=== PATIENT | male | born 1975 | race Caucasian/White ===

== ENCOUNTER 2019-10-11 03:44 | Observation (INO) ==
[2019-10-11] MEDS ORDERED: LORazepam 1 MG/2 ML VIAL IV STA (04:05)
[2019-10-11 04:14] LABS: Basophils # (auto) 0.03 K/uL (0-0.2); Basophils % (auto) 0.3 %; Eosinophils # (auto) 0.24 K/uL (0-0.5); Eosinophils % (auto) 2.4 %; Hematocrit (blood only) 46.9 % (42-52); Hemoglobin 16.3 g/dL (14.0-18.0); Immature Granulocytes # (auto) 0.04 K/uL (0.00-0.02); Immature Granulocytes % (auto) 0.4 %; Lymphocytes # (auto) 4.11 K/uL (1.2-3.4); Lymphocytes % (auto) 41.3 %; Mean Corpuscular Hemoglobin 31.2 pg (25-34); Mean Corpuscular Hgb Conc 34.8 g/dL (32-36); Mean Corpuscular Volume 89.7 fL (80-100); Mean Platelet Volume 9.9 fL (7.4-10.4); Monocytes # (auto) 0.74 K/uL (0.11-0.59); Monocytes % (auto) 7.4 %; Neutrophils # (auto) 4.79 K/uL (1.4-6.5); Neutrophils % (auto) 48.2 %; Platelet Count 237 K/uL (130-400); RDW Coefficient of Variation 12.7 % (11.5-14.5); RDW Standard Deviation 41.1 fL (36.4-46.3); Red Blood Count 5.23 M/uL (4.7-6.1); White Blood Count 9.95 K/uL (4.8-10.8)
--- NOTE | 2019-10-11 04:28 | Emergency Department Note ---
History of Present Illness General Chief complaint: Chest Pain Stated complaint: CHEST TIGHTNESS,NUMBNESS LFT ARM,JAW FEELS WEIRD History of Present Illness This 44-year-old presents to the ER complaining of chest pain, jaw pain and left arm pain Location: Chest jaw and left arm Quality: Tingly Severity: Moderate Duration: Past hour Timing: Symptoms started an hour ago Context: Patient was concerned and came in Modifying factors: better with nothing; worse with nothing Patient states he stopped taking his metformin as he developed diarrhea and it was interfering with hunting season. No prior heart disease. He does chew tobacco. He states his blood pressure normally is normal but has not seen a doctor in 2 years. Patient did get sweaty with the symptoms. Patient denies dyspnea, abdominal pain, fever, chills, flulike illness. He states he is a weird feeling in his chest jaw and neck. Home Medications Home Medications Medication Instructions Recorded Confirmed Type No Known Home Medications 10/11/19 10/11/19 History Allergies Allergy/AdvReac Type Severity Reaction Status Date / Time No Known Allergies Allergy Verified 10/11/19 04:38 Past Med/Surg History Medical History Diabetes Surgical History No pertinent past surgical history Social History Preferred Language: Com[place]an Feels Safe at Home: Yes Smoking Status: Never smoker Review of Systems A total of 10 systems reviewed and were otherwise negative Physical Exam Vital Signs Vital Signs - 24 hr 10/11/19 03:48 10/11/19 04:15 10/11/19 04:52 Temperature 36.8 C Temperature Source Oral Pulse Rate 72 71 Pulse Rate [Finger] 67 Pulse Rhythm Regular Pulse Rhythm [Finger] Regular Pulse Strength [Finger] Normal Respiratory Rate 22 18 18 Respiratory Effort / Characteristics Non-Labored Spontaneous Respiratory Depth Normal Respiratory Pattern Regular Blood Pressure 176/105 H Blood Pressure [Right Arm] 145/96 H Blood Pressure Mean 128 Blood Pressure Mean [Right Arm] 112 Blood Pressure Position [Right Arm] Lying Pulse Oximetry 96 96 96 Oxygen Delivery Method Room Air Room Air Room Air Sepsis Recent Fever Within 48 Hours No Sepsis New/Unexplained Change in Mental Status No Sepsis Action Taken by Nursing No Action Required VITALS: Vitals are noted on the nurse's note and reviewed by myself. Vital signs hypertensive GENERAL: Pleasant anxious appearing male, in no acute distress, nondiaphoretic, well-developed well-nourished. SKIN: Capillary reflex less than 2 seconds. HEENT: Normocephalic. PERRLA. EOMI. Nares patent. Mucous membranes moist. Neck is supple without nuchal rigidity. HEART: Regular rate and rhythm; chest nontender to palpation LUNGS: Clear to auscultation bilaterally without wheezes, rales or rhonchi. No retractions or accessory muscle use. ABDOMEN: Positive bowel sounds x 4. Normal tympanic percussion. Soft, nontender, without masses or organomegaly. Hdez sign negative. No guarding or rebound tenderness. MUSCULOSKELETAL: No gross musculoskeletal defects. NEURO: Patient was alert and oriented to person place and time. Normal sensation to light and sharp touch. No focal neurological deficits. Course Administered Medications Sodium Chloride (Nss 1000ml) 1,000 mls @ 999 mls/hr IV .Q1H1M ONE Stop: 10/11/19 05:45 Last Admin: 10/11/19 04:52 Dose: 999 mls/hr Documented by: [id number] Discontinued Medications Lorazepam (Ativan) 1 mg in 2 mls @ 2 mls/min IV NOW STA Stop: 10/11/19 04:06 Last Admin: 10/11/19 04:09 Dose: 2 mls/min Documented by: [id number] Medical Decision Making Medical Records Attestation: I reviewed the patient's medical records. Home Medications Current Medication List: was personally reviewed by me Laboratory Data Attestation: I reviewed the patient's lab results. Result diagrams: 10/11/19 04:00 10/11/19 04:00 Lab Results 10/11/19 10/11/19 Range/Units 04:00 04:00 WBC 9.95 (4.8-10.8) K/uL RBC 5.23 (4.7-6.1) M/uL Hgb 16.3 (14.0-18.0) g/dL Hct 46.9 (42-52) % MCV 89.7 (80-100) fL MCH 31.2 (25-34) pg MCHC 34.8 (32-36) g/dL RDW Std Deviation 41.1 (36.4-46.3) fL RDW Coeff of Naren 12.7 (11.5-14.5) % Plt Count 237 (130-400) K/uL MPV 9.9 (7.4-10.4) fL Immature Gran % (Auto) 0.4 % Neut % (Auto) 48.2 % Lymph % (Auto) 41.3 % [place] % (Auto) 7.4 % Eos % (Auto) 2.4 % Baso % (Auto) 0.3 % Immature Gran # (Auto) 0.04 H (0.00-0.02) K/uL Neut # (Auto) 4.79 (1.4-6.5) K/uL Lymph # (Auto) 4.11 H (1.2-3.4) K/uL [place] # (Auto) 0.74 H (0.11-0.59) K/uL Eos # (Auto) 0.24 (0-0.5) K/uL Baso # (Auto) 0.03 (0-0.2) K/uL Sodium 132 L (136-145) mmol/L Potassium 3.7 (3.5-5.1) mmol/L Chloride 98 (98-107) mmol/L Carbon Dioxide 28 (21-32) mmol/L Anion Gap 6.0 (3-11) BUN 11 (7-18) mg/dl Creatinine 1.06 (0.6-1.4) mg/dl Est Cr Clr Drug Dosing 131.8 ml/min Est GFR ( Amer) 97.8 Est GFR (Non-Af Amer) 84.3 BUN/Creatinine Ratio 10.7 (10-20) Glucose 381 H* (70-99) mg/dl Calcium 9.1 (8.5-10.1) mg/dl Total Bilirubin 0.5 (0.2-1) mg/dl AST 21 (15-37) U/L ALT 48 (12-78) U/L Alkaline Phosphatase 105 (45-117) U/L Troponin I < 0.015 (0-0.045) ng/ml Total Protein 7.2 (6.4-8.2) gm/dl Albumin 2.6 L (3.4-5.0) gm/dl Globulin 4.6 H (2.5-4.0) gm/dl Albumin/Globulin Ratio 0.6 L (0.9-2) Lipase 158 (73-393) U/L Beta-Hydroxybutyric Acd (0.2-2.81) mg/dl Specimen Hemolysis Imaging Data Attestation: I personally reviewed and interpreted this imaging study as follows: Blood Pressure Blood Pressure Findings: Elevated blood pressure Blood Pressure Disposition: Referred to patients primary care provider [facility] Narrative Prior records/ancillary studies reviewed. Triage Nursing notes reviewed. The patient's history was concerning for chest pain. Differential diagnosis: Etiologies such as cardiac ischemia, aortic dissection, pulmonary embolism, pneumonia, pneumothorax, musculoskeletal, infections, pericarditis, myocarditis, esophageal rupture, gastrointestinal, as well as others were entertained. Physical examination: As above. ER treatment provided: Ativan On reassessment the patient felt better. Diagnostic interpretation by me: The electrocardiogram was negative for pathologic change. Normal sinus, normal intervals, no acute ST-T wave changes, rate of 62. Impression normal sinus rhythm interpreted by myself. EKG was repeated 2 more times and unchanged per my interpretation. EKG ordered for chest pain I think arrhythmia is unlikely. EKG shows normal sinus rhythm with no interval abnormalities such as QT prolongation or WPW. There are no findings to suggest Brugada syndrome. Cardiac monitoring in the emergency department reveals no tachycardic or bradycardic dysrhythmia. Hypertrophic cardiomyopathy was considered but there are no clear historical elements pointing toward this. EKG is not suggestive. The QRS voltage is not extremely large and there are no suggestive Q waves. The labs revealed first troponin is negative. Patient symptoms have been ongoing for only 1 hour. Hyperglycemia without DKA Imaging studies: Chest x-ray with no acute consolidation, pneumothorax or free air per my i nterpretation HEART SCORE: Hx: high/mod/low suspicion: 1 ECG: ST depression/nonspecific changes/normal: 0 Age: Greater than 65/45-64/less than 45: 1 Risk factors: (Hypertension, hyperlipidemia, diabetes, coronary disease, tobacco use, cocaine use): 2 Troponin: Greater than 2 times normal limits/1-2 times normal limits/normal: 0 Total: 4 Consultation: A consultation was placed with the hospitalist, Dr. Hoffmann. The case was discussed and diagnostics were reviewed. The patient was evaluated in the ER for further treatment. Exam and history seem consistent with chest pain with concerns for cardiac in etiology. Patient did get sweaty with the symptoms. Symptoms went down his arm. First troponin was negative. Heart score is 4. Patient's had symptoms for 1 hour. Patient is noncompliant with his diabetic treatment regimen. He does chew tobacco. He denies family history of heart disease. Medicine was consulted. By the evaluation outlined above emergent etiologies such as aortic dissection, pulmonary embolism, pneumonia, pneumothorax, infections, pericarditis, myocarditis, gastrointestinal, as well as others were deemed relatively unlikely. The pt informed about the findings as listed above. All questions were answered and pleased with the treatment. Case reviewed with my attending The chart was completed utilizing [employer] Speech voice recognition software. Grammatical errors, random word insertions, pronoun errors, and incomplete sentences are an occassional consequence of this system due to software limitations, ambient noise, and hardware issues. Any formal questions or concerns about the content, text, or information contained within the body of t his dictation should be directly addressed to the physician dental office assistant for clarification. Impression & Plan Chest pain, Diabetes mellitus with hyperglycemia Discharge Plan Visit Data Chief Complaint: Chest Pain Stated Complaint: CHEST TIGHTNESS,NUMBNESS LFT ARM,JAW FEELS WEIRD ED Provider: Rebecca De La Cruz ED Midlevel Provider: Keri Dickens Discharge Problem: Chest pain, Diabetes mellitus with hyperglycemia Patient Disposition: Being Evaluated by Hospitalist Condition: Good Forms Stand Alone Forms: Call Back Authorization, My [facility] [employer] Prescriptions Prescriptions: No Action No Known Home Medications RF: 0 Referrals Referrals: Tyrese Briceno MD [Primary Care Provider] - Discharge Problem: Chest pain Qualifiers: Chest pain type: unspecified Qualified Code(s): R07.9 - Chest pain, unspecified
[2019-10-11 04:44] LABS: Alanine Aminotransferase 48 U/L (12-78); Albumin Globulin Ratio 0.6 (0.9-2); Albumin Level 2.6 gm/dl (3.4-5.0); Alkaline Phosphatase 105 U/L (45-117); Aspartate Aminotransferase 21 U/L (15-37); BUN Creatinine Ratio 10.7 (10-20); Bilirubin,Total 0.5 mg/dl (0.2-1); Blood Urea Nitrogen 11 mg/dl (7-18); Calcium 9.1 mg/dl (8.5-10.1); Carbon Dioxide 28 mmol/L (21-32); Chloride 98 mmol/L (98-107); Creatinine Clr Calc Pharmacy 131.8 ml/min; Est GFR (African American) 97.8; Est GFR (Non-African American) 84.3; Globulin 4.6 gm/dl (2.5-4.0); Glucose 381 mg/dl (70-99); Lipase 158 U/L (73-393); Potassium 3.7 mmol/L (3.5-5.1); Sodium 132 mmol/L (136-145); Total Protein 7.2 gm/dl (6.4-8.2); Troponin I < 0.015 ng/ml (0-0.045)
[2019-10-11] MEDS ORDERED: SODIUM CHLORIDE 0.9% 1000ML 1,000 ML IV ONE (04:45)
[2019-10-11] MEDS ORDERED: lisinopriL 5 MG TAB PO STA (05:20)
[2019-10-11] MEDS ORDERED: MODERATE STRESS LEVEL ONE (05:35)
[2019-10-11] MEDS ORDERED: ASPIRIN 81 MG ECTAB PO STA (05:35)
[2019-10-11] MEDS ORDERED: INSULIN PROTOCOL GOAL RANGE ONE (05:35)
[2019-10-11 06:00] LABS: Partial Thromboplastin Time 27.8 Seconds (21.0-31.0)
[2019-10-11 06:09] LABS: Magnesium 1.8 mg/dl (1.8-2.4)
--- NOTE | 2019-10-11 06:31 | History & Physical Report ---
Date of Service October 11, 2019 Assessment & Plan (1) Chest pain: Possibly from elevated blood pressure History medication noncompliance Rule out ACS given risk factors DM2, previously on oral meds, noncompliant, elevated blood sugars Suboptimal control as of recent outpatient hemoglobin A1c of 9.1 2017 hyperlipidemia, noncompliant with home statin the last few years history of postop DVT status post Coumadin BABITA as per records, patient yet to complete CPAP titration study past tobacco abuse, OBS PCU Aspirin for CAD prevention until ACS ruled out Resume previous home lisinopril Rx and titrate accordingly Resume home statin. Update lipid profile, hemoglobin A1c. Follow troponin, Cardiology consult RE chest tightness IV insulin while patient n.p.o. in anticipation of cardiac procedure Update hemoglobin A1c May benefit from pharmacy glycemic control consult. Complete outpatient sleep study DVT prophylaxis. Lovenox subcu Full code History of Present Illness Chief Complaint: Chest pain Primary Care Provider: Tyrese Briceno MD History obtained from patient and records. Medical history significant for hypertension, hyperlipidemia, DM 2, history of postop DVT status post Coumadin, BABITA as per records, past tobacco abuse, medication noncompliance. Patient stopped taking his blood pressure, cholesterol, diabetes medications a few years ago because he was not able to go to his PCP's office. . Patient was lying in bed last night when he experienced substernal tightness going to his neck, jaw, and left arm without other symptoms. May have had a couple transient episodes a few years ago as per patient. At the ER, chest tightness resolved after Ativan administration.. Medical History as above Surgical History : Knee surgery, back surgery, dental surgery, tonsillectomy Family History : Stroke, hypertension Personal/Social history : Past tobacco abuse, occasional EtOH intake, [employer] employee Allergies Allergy/AdvReac Type Severity Reaction Status Date / Time No Known Allergies Allergy Verified 10/11/19 04:38 Home Medications Home Medications Medication Instructions Recorded Confirmed Type No Known Home Medications 10/11/19 10/11/19 History Past Med/Surg History Medical History Diabetes Surgical History No pertinent past surgical history Social History Preferred Language: Uzbek Communication Ability: Effective Model [employer] Dye Person Required: No Beliefs That Will Affect Care: None Current Living Situation: Spouse Other Information That Helps Us Care for You: No Feels Safe at Home: Yes Safety Concerns: Feels Safe At This Time Smoking Status: Never smoker Do You Dip or Chew Tobacco: Yes ; Second Hand E xposure: No ; Tobacco Cessation Education Requested by Patient: No Hx Alcohol Use: Yes Alcohol type: beer Hx Substance Use: No Review of Systems Review of Systems: As per HPI, all 10 systems reviewed, all other ROS negative Physical Exam Physical Exam: GENERAL: Comfortable, slightly anxious, morbidly obese, no respiratory distress SKIN: Normal color, warm HEENT: [place] palpebral conjunctivae, no ptosis, moist buccal mucosa NECK : Supple, short neck, no tenderness CHEST : Decreased breath sounds , no tenderness HEART : RRR, no obvious murmurs ABDOMEN: Some distention, nontender EXTREMITIES : Minimal LE swelling no LE tenderness, no other conspicuous def ormities noted NEUROLOGIC : Coherent, no facial asymmetry, no other gross focality Results & Data Vital Signs (Past 12 Hours) Vital Signs Temp Pulse Pulse Resp BP BP Pulse Ox 10/11/19 06:11 76 15 149/90 H 98 10/11/19 04:52 67 18 145/96 H 96 10/11/19 04:15 71 18 96 10/11/19 03:48 36.8 C 72 22 176/105 H 96 Laboratory Results Laboratory Results WBC 9.95 K/uL (4.8-10.8) 10/11/19 04:00 RBC 5.23 M/uL (4.7-6.1) 10/11/19 04:00 Hgb 16.3 g/dL (14.0-18.0) 10/11/19 04:00 Hct 46.9 % (42-52) 10/11/19 04:00 MCV 89.7 fL (80-100) 10/11/19 04:00 MCH 31.2 pg (25-34) 10/11/19 04:00 MCHC 34.8 g/dL (32-36) 10/11/19 04:00 RDW Std Deviation 41.1 fL (36.4-46.3) 10/11/19 04:00 RDW Coeff of Naren 12.7 % (11.5-14.5) 10/11/19 04:00 Plt Count 237 K/uL (130-400) 10/11/19 04:00 MPV 9.9 fL (7.4-10.4) 10/11/19 04:00 Immature Gran % (Auto) 0.4 % 10/11/19 04:00 Neut % (Auto) 48.2 % 10/11/19 04:00 Lymph % (Auto) 41.3 % 10/11/19 04:00 [place] % (Auto) 7.4 % 10/11/19 04:00 Eos % (Auto) 2.4 % 10/11/19 04:00 Baso % (Auto) 0.3 % 10/11/19 04:00 Immature Gran # (Auto) 0.04 K/uL (0.00-0.02) H 10/11/19 04:00 Neut # (Auto) 4.79 K/uL (1.4-6.5) 10/11/19 04:00 Lymph # (Auto) 4.11 K/uL (1.2-3.4) H 10/11/19 04:00 [place] # (Auto) 0.74 K/uL (0.11-0.59) H 10/11/19 04:00 Eos # (Auto) 0.24 K/uL (0-0.5) 10/11/19 04:00 Baso # (Auto) 0.03 K/uL (0-0.2) 10/11/19 04:00 APTT 27.8 Seconds (21.0-31.0) 10/11/19 04:00 PTT Ratio 1.0 10/11/19 04:00 Sodium 132 mmol/L (136-145) L 10/11/19 04:00 Potassium 3.7 mmol/L (3.5-5.1) 10/11/19 04:00 Chloride 98 mmol/L (98-107) 10/11/19 04:00 Carbon Dioxide 28 mmol/L (21-32) 10/11/19 04:00 Anion Gap 6.0 (3-11) 10/11/19 04:00 BUN 11 mg/dl (7-18) 10/11/19 04:00 Creatinine 1.06 mg/dl (0.6-1.4) 10/11/19 04:00 Est Cr Clr Drug Dosing 131.8 ml/min 10/11/19 04:00 Est GFR ( Amer) 97.8 10/11/19 04:00 Est GFR (Non-Af Amer) 84.3 10/11/19 04:00 BUN/Creatinine Ratio 10.7 (10-20) 10/11/19 04:00 Glucose 381 mg/dl (70-99) H* 10/11/19 04:00 POC Glucose 327 (70-99) H* 10/11/19 06:06 Calcium 9.1 mg/dl (8.5-10.1) 10/11/19 04:00 Magnesium 1.8 mg/dl (1.8-2.4) 10/11/19 04:00 Total Bilirubin 0.5 mg/dl (0.2-1) 10/11/19 04:00 AST 21 U/L (15-37) 10/11/19 04:00 ALT 48 U/L (12-78) 10/11/19 04:00 Alkaline Phosphatase 105 U/L (45-117) 10/11/19 04:00 Troponin I < 0.015 ng/ml (0-0.045) 10/11/19 04:00 Total Protein 7.2 gm/dl (6.4-8.2) 10/11/19 04:00 Albumin 2.6 gm/dl (3.4-5.0) L 10/11/19 04:00 Globulin 4.6 gm/dl (2.5-4.0) H 10/11/19 04:00 Albumin/Globulin Ratio 0.6 (0.9-2) L 10/11/19 04:00 Triglycerides 273 mg/dl (0-150) H 10/11/19 04:00 Cholesterol 306 mg/dl (0-200) H 10/11/19 04:00 LDL Cholesterol, Calc 200 mg/dl 10/11/19 04:00 VLDL Cholesterol, Calc 55 mg/dl 10/11/19 04:00 HDL Cholesterol 51 mg/dl 10/11/19 04:00 Cholesterol/HDL Ratio 6 10/11/19 04:00 Lipase 158 U/L (73-393) 10/11/19 04:00 Beta-Hydroxybutyric Acd mg/dl (0.2-2.81) 10/11/19 04:00 Specimen Hemolysis 10/11/19 04:00 Specimen Hemolysis 10/11/19 04:00 Diagnostic Findings Chest x-ray as per my interpretation atelectasis EKG as per my interpretation : Rate 60, NSR, normal axis, no ischemia Code Status & VTE Plan VTE Prophylaxis Plan VTE Prophylaxis will be ordered: Yes (1) Chest pain Chest pain type: unspecified Qualified Code(s): R07.9 - Chest pain, unspecified
[2019-10-11 06:51] LABS: Estimated Average Glucose 255 mg/dl; Hemoglobin A1C 10.5 % (4.5-5.6)
--- NOTE | 2019-10-11 07:28 | XRay Report ---
XR chest 1V portable HISTORY: Atypical Chest Pain COMPARISON: Chest 03/14/2019. FINDINGS: The lungs are clear. Cardiac silhouette is normal in size. No pleural effusions. No pneumot horax. IMPRESSION: No acute process. ACT 112: Negative or not required by law. Electronically signed by: Jeevan Del Rio M.D. 10/11/2019 7:27 AM
[2019-10-11] MEDS ORDERED: NovoLIN-R BOLUS FROM BAG IV ONE (07:30)
[2019-10-11] MEDS ORDERED: INSULIN REGULAR 250 UNITS in SODIUM CHLORIDE 0.9% 247.5 ML IV SCH (07:30)
[2019-10-11] MEDS ORDERED: GLUCAGON FOR INJ 1 MG VIAL IM PRN (09:00)
[2019-10-11] MEDS ORDERED: DEXTROSE 50% 50 ML SYRINGE IV PRN (09:00)
[2019-10-11] MEDS ORDERED: GLUCOSE 10 TABS/TUBE PO PRN (09:00)
[2019-10-11] MEDS ORDERED: GLUCOSE 40% GEL 15 GM TUBE PO PRN (09:00)
[2019-10-11] MEDS ORDERED: CARBOHYDRATES FOR HYPOGLYCEMIA PO PRN (09:00)
[2019-10-11] MEDS ORDERED: PROMETHAZINE HCL 12.5 MG in SODIUM CHLORIDE 0.9% 50 ML IV PRN (09:04)
[2019-10-11] MEDS ORDERED: D5W AND LACTATED RINGERS 1,000 ML IV PRN (09:04)
[2019-10-11] MEDS ORDERED: ACETAMINOPHEN 325 MG TAB PO PRN (09:04)
[2019-10-11] MEDS ORDERED: OXYCODONE HCL IR 5 MG TAB (IMMEDIATE RELEASE) PO PRN (09:04)
[2019-10-11] MEDS ORDERED: MoRPHine SULFATE 4 MG/ML 1 ML CARP\\VIAL IV PRN (09:04)
[2019-10-11] MEDS ORDERED: LORazepam 0.5 MG/1 ML VIAL IV PRN (09:04)
[2019-10-11] MEDS ORDERED: NITROGLYCERIN SL 0.4 MG/TAB TAB SL PRN (09:04)
[2019-10-11] MEDS: INSULIN ASPART 100 UNITS/ML 3 ML PEN SC SCH ×4 (09:07→23:57)
--- NOTE | 2019-10-11 10:08 | Electrocardiogram Report ---
Test Reason : Blood Pressure : / mmHG Vent. Rate : 066 BPM Atrial Rate : 066 BPM P-R Int : 138 ms QRS Dur : 084 ms QT Int : 406 ms P-R-T Axes : 048 030 047 degrees QTc Int : 425 ms Normal sinus rhythm Low voltage QRS Borderline ECG When compared with ECG of 06-FEB-2010 17:51, No significant change was found Confirmed by Edward Lu ([id number]) on 10/11/2019 10:07:53 AM Referred By: REFERRED SELF Confirmed By:Edward Lu
--- NOTE | 2019-10-11 10:10 | Electrocardiogram Report ---
Test Reason : Blood Pressure : / mmHG Vent. Rate : 069 BPM Atrial Rate : 069 BPM P-R Int : 154 ms QRS Dur : 088 ms QT Int : 398 ms P-R-T Axes : 033 031 036 degrees QTc Int : 426 ms Normal sinus rhythm Low voltage QRS Borderline ECG When compared with ECG of 11-OCT-2019 04:21, (unconfirmed) No significant change was found Confirmed by Edward Lu ([id number]) on 10/11/2019 10:10:15 AM Referred By: REFERRED SELF Confirmed By:Edward Lu
--- NOTE | 2019-10-11 10:10 | Electrocardiogram Report ---
Test Reason : Blood Pressure : / mmHG Vent. Rate : 062 BPM Atrial Rate : 062 BPM P-R Int : 148 ms QRS Dur : 084 ms QT Int : 398 ms P-R-T Axes : 035 027 036 degrees QTc Int : 403 ms Normal sinus rhythm Low voltage QRS Borderline ECG When compared with ECG of 11-OCT-2019 03:54, (unconfirmed) No significant change was found Confirmed by Edward Lu ([id number]) on 10/11/2019 10:10:09 AM Referred By: REFERRED SELF Confirmed By:Edward Lu
[2019-10-11] MEDS: NSS + 20MEQ KCL 20 MEQ/1,000 ML BAG IV SCH (10:21)
[2019-10-11] MEDS: ATORVASTATIN 20 MG TAB PO SCH (10:22)
[2019-10-11] MEDS: ENOXAPARIN INJ 40 MG/0.4 ML SYR SQ SCH (10:22)
[2019-10-11] MEDS ORDERED: PHARMACY GLYCEMIC MGMT CONSULT PRN (16:31)
[2019-10-11] MEDS ORDERED: INSULIN GLARGINE SOLOSTAR 100 UNITS/ML 3 ML PEN SC ONE (16:45)
[2019-10-11] MEDS ORDERED: INSULIN ASPART 100 UNITS/ML 3 ML PEN SC SCH (18:00)
--- NOTE | 2019-10-11 18:00 | Cardiology Consultation ---
Date of Consultation October 11, 2019 Assessment & Plan (1) Chest pain: (2) Dyslipidemia: The patient's calculated BMI is 49.2 kg/m. He is free of chest pain now, serial EKG tracings have been negative for ischemia, troponin negative x3 LDL cholesterol was elevated at 200 mg/dL, hemoglobin A1c elevated 10.5%. Continue current medications including aspirin 81 mg daily, lisinopril 5 mg daily, atorvastatin. Atorvastatin has been started 20 mg, in an effort to help him tolerate the medication and minimize side effects. Recommend ongoing hospitalization. Given the patient's body habitus, I think would be very difficult to obtain technically adequate exercise echo images, will proceed with attempting pharmacologic stress echocardiogram tomorrow. Patient agreeable. History of Present Illness Attending Physician: Edy Sanchez MD History of Present Illness Geoffrey Geiger is a 44 year old male seen in cardiology consultation per the request of Dr Hoffmann for the evaluation of chest pain. He has a history of obesity and type 2 diabetes mellitus. He states he has been diagnosed with diabetes for 10 years, he has not seen a doctor in 2 years, and stopped taking medications. He states that he used to tolerate taking metformin 500 mg twice daily, but as his dose was raised, he had symptomatic diarrhea, and poorly from a side effect standpoint, and therefore stopped his medications when he ran out of pills, and did not seek refills. He states that early this morning he was watching television and had onset of left-sided chest discomfort and also left-sided arm numbness, the symptoms persisted for about half an hour from 230 to 3 AM, and his chest symptoms had resolved prior to arrival to the emergency room. Allergies Allergy/AdvReac Type Severity Reaction Status Date / Time No Known Allergies Allergy Verified 10/11/19 04:38 Home Medications Home Medications Medication Instructions Recorded Confirmed Type No Known Home Medications 10/11/19 10/11/19 History Patient History Medical History Diabetes Surgical History No pertinent past surgical history Social History Preferred Language: Belarusian Communication Ability: Effective Rug Hooker Required: No Beliefs That Will Affect Care: None Current Living Situation: Spouse Other Information That Helps Us Care for You: No Feels Safe at Home: Yes Safety Concerns: Feels Safe At This Time Smoking Status: Never smoker Do You Dip or Chew Tobacco: Yes ; Second Hand Exposure: No ; Tobacco Cessation Education Requested by Patient: No Hx Alcohol Use: Yes Alcohol type: beer Hx Substance Use: No Review of Systems Review of Systems: All systems reviewed & are unremarkable except as noted in HPI & below Physical Exam Physical Exam: Temp Pulse Resp BP Pulse Ox 36.7 C 73 21 93/52 L 95 10/11/19 12:00 10/11/19 14:00 10/11/19 14:00 10/11/19 13:19 10/11/19 08:10 Constitutional: WD/WN, vitals as above + morbidly obese Respiratory: normal respiratory effort, lungs clear to auscultation Cardiovascular: RRR, no murmur, no edema Gastrointestinal (Abdomen): normal bowel sounds, soft, nontender, no hepatosplenomegaly Neurologic: PERRL, EOMI, accommodation nl, no face palsy, no dysarthria Results & Data Vital Signs (Past 12 Hours) Vital Signs Temp Pulse Pulse Pulse Resp BP BP 10/11/19 14:00 73 21 10/11/19 13:19 57 L 18 93/52 L 10/11/19 13:00 60 15 10/11/19 12:20 60 16 97/51 L 10/11/19 12:00 36.7 C 58 L 17 10/11/19 11:19 66 16 111/69 10/11/19 11:00 60 16 10/11/19 10:00 70 18 10/11/19 09:02 78 15 10/11/19 08:30 85 17 10/11/19 08:10 36.8 C 82 82 20 159/97 H 150/84 H 10/11/19 07:35 75 20 149/88 H 10/11/19 06:11 76 15 149/90 H Pulse Ox 10/11/19 14:00 10/11/19 13:19 10/11/19 13:00 10/11/19 12:20 10/11/19 12:00 10/11/19 11:19 10/11/19 11:00 10/11/19 10:00 10/11/19 09:02 10/11/19 08:30 10/11/19 08:10 95 10/11/19 07:35 95 10/11/19 06:11 98 Laboratory Results Cardiac Enzymes 10/11/19 10/11/19 10/11/19 Range/Units 04:00 06:36 15:45 AST 21 (15-37) U/L Troponin I < 0.015 < 0.015 < 0.015 (0-0.045) ng/ml Coagulation 10/11/19 Range/Units 04:00 APTT 27.8 (21.0-31.0) Seconds Lipids 10/11/19 Range/Units 04:00 Triglycerides 273 H (0-150) mg/dl Cholesterol 306 H (0-200) mg/dl HDL Cholesterol 51 mg/dl Cholesterol/HDL Ratio 6 CBC 10/11/19 Range/Units 04:00 WBC 9.95 (4.8-10.8) K/uL RBC 5.23 (4.7-6.1) M/uL Hgb 16.3 (14.0-18.0) g/dL Hct 46.9 (42-52) % Plt Count 237 (130-400) K/uL Neut # (Auto) 4.79 (1.4-6.5) K/uL Lymph # (Auto) 4.11 H (1.2-3.4) K/uL [place] # (Auto) 0.74 H (0.11-0.59) K/uL Eos # (Auto) 0.24 (0-0.5) K/uL Baso # (Auto) 0.03 (0-0.2) K/uL Comprehensive Metabolic Panel 10/11/19 Range/Units 04:00 Sodium 132 L (136-145) mmol/L Potassium 3.7 (3.5-5.1) mmol/L Chloride 98 (98-107) mmol/L Carbon Dioxide 28 (21-32) mmol/L BUN 11 (7-18) mg/dl Creatinine 1.06 (0.6-1.4) mg/dl Glucose 381 H* (70-99) mg/dl Calcium 9.1 (8.5-10.1) mg/dl AST 21 (15-37) U/L ALT 48 (12-78) U/L Alkaline Phosphatase 105 (45-117) U/L Total Protein 7.2 (6.4-8.2) gm/dl Albumin 2.6 L (3.4-5.0) gm/dl Intake and Output 10/11/19 10/11/19 10/11/19 06:59 14:59 22:59 Intake Total 1000 / 1000 0 / 29.445 29.445 / 29.445 Balance 1000 / 1000 0 / 29.445 29.445 / 29.445 Intake: IV 1000 / 1000 29.445 / 29.445 NovoLIN R 250 UNITS In Nss 247. 29.445 / 29.445 5 ml @ 3.9 UNITS/HR 3.9 mls/hr IV .Q24H QUETA Rx#:[id number] Nss 1000ML 1,000 ml @ 999 mls/ 1000 / 1000 hr IV .Q1H1M ONE Rx#:[id number] Oral 0 / 0 Other: # Unmeasured Voids 3 Weight 155.2 kg 155.582 kg Patient Weight 10/12/19 06:59 Weight 155.582 kg Diagnostic Findings EKG tracings x3 reviewed, the first which was 10/11/2019 at 3:54 AM revealing normal sinus rhythm at 66 bpm, low voltage, otherwise normal EKG without any significant ST changes. -The additional 2 tracings reveal sinus rhythm without any repolarization changes. (1) Chest pain Chest pain type: unspecified Qualified Code(s): R07.9 - Chest pain, unspecified
[2019-10-11] MEDS ORDERED: METFORMIN HCL ER 500 MG TABCR PO SCH (18:30)
--- NOTE | 2019-10-11 23:34 | Hospitalist Progress Note ---
Date of Service October 11, 2019 Subjective Pt seen and examined at the bedside, room E106. Pt is an obese male laying in bed in NAD, currently on IV insulin gtt. Currently denies any chest pain, shortness of breath, palpitations, abd. pain, nausea or vomiting. HbA1c > 10%, consumer educator at the bedside as well, pharmacy consulted for glycemic management. EKG tracings x3 negat. for ischemia, troponin x3 negative.Clear lungs to auscult., no wheezing, rhonchi, crackles, heart sounds regular, w/o murmur, abdomen soft, obese,nl. bowel sound, moves all 4 extremities spontaneously, no sign. LE edema. Patient restarted on lisinopril for elevated BP, statin, plan to restart him back on metformin 500 mg BID on discharge and insulin. Results & Data Vital Signs (Past 12 Hours) Vital Signs Temp Pulse Pulse Resp BP BP Pulse Ox 10/11/19 20:01 36.8 C 82 18 124/87 95 10/11/19 18:00 71 14 10/11/19 17:21 69 18 10/11/19 17:00 63 16 10/11/19 16:19 67 17 127/69 10/11/19 16:15 66 15 110/74 10/11/19 16:00 36.8 C 72 19 94 10/11/19 15:00 73 20 10/11/19 14:00 73 21 10/11/19 13:19 57 L 18 93/52 L 10/11/19 13:00 60 15 10/11/19 12:20 60 16 97/51 L 10/11/19 12:00 36.7 C 58 L 17
[2019-10-12] MEDS: NSS + 20MEQ KCL 20 MEQ/1,000 ML BAG IV SCH (02:02)
[2019-10-12] MEDS: INSULIN ASPART 100 UNITS/ML 3 ML PEN SC SCH ×3 (03:58→12:32)
[2019-10-12 06:57] LABS: Basophils # (auto) 0.03 K/uL (0-0.2); Basophils % (auto) 0.3 %; Eosinophils % (auto) 2.1 %; Hematocrit (blood only) 45.5 % (42-52); Hemoglobin 15.4 g/dL (14.0-18.0); Immature Granulocytes # (auto) 0.04 K/uL (0.00-0.02); Immature Granulocytes % (auto) 0.4 %; Lymphocytes # (auto) 3.43 K/uL (1.2-3.4); Lymphocytes % (auto) 35.3 %; Mean Corpuscular Hemoglobin 30.8 pg (25-34); Mean Corpuscular Hgb Conc 33.8 g/dL (32-36); Mean Platelet Volume 9.2 fL (7.4-10.4); Monocytes # (auto) 0.79 K/uL (0.11-0.59); Monocytes % (auto) 8.1 %; Neutrophils # (auto) 5.24 K/uL (1.4-6.5); Neutrophils % (auto) 53.8 %; Platelet Count 201 K/uL (130-400); RDW Coefficient of Variation 13.2 % (11.5-14.5); RDW Standard Deviation 43.1 fL (36.4-46.3); White Blood Count 9.73 K/uL (4.8-10.8)
[2019-10-12 07:35] LABS: BUN Creatinine Ratio 12.2 (10-20); Calcium 8.9 mg/dl (8.5-10.1); Creatinine Clr Calc Pharmacy 147.2 ml/min; Est GFR (African American) 111.6; Est GFR (Non-African American) 96.3; Potassium 4.3 mmol/L (3.5-5.1)
[2019-10-12] MEDS: ENOXAPARIN INJ 40 MG/0.4 ML SYR SQ SCH (08:18)
[2019-10-12] MEDS: ATORVASTATIN 20 MG TAB PO SCH (08:19)
--- NOTE | 2019-10-12 08:23 | Pharmacy Report ---
Glycemic Control Consultation - Date of Service October 12, 2019 - Scope Scope: Glycemic Pharmacist consulted by Dr Sanchez on 10/11 for glycemic control and to write orders per [facility] inpatient glycemic control protocol - Objective Weight: 155.5 kg Accuchecks BSG (last 24hrs): 10/11/19 10/11/19 10/11/19 09:05 10:07 11:18 Glucose POC Glucose 263 H 248 H 217 H 10/11/19 10/11/19 10/11/19 12:43 14:01 14:59 Glucose POC Glucose 182 H 168 H 128 H 10/11/19 10/11/19 10/11/19 15:25 15:39 15:55 Glucose POC Glucose 123 H 128 H 126 H 10/11/19 10/11/19 10/11/19 16:29 21:10 23:53 Glucose POC Glucose 132 H 172 H 148 H 10/12/19 10/12/19 10/12/19 03:54 06:41 07:12 Glucose 158 H POC Glucose 149 H 172 H Laboratory Data (last 24hrs): 10/12/19 06:41 Potassium 4.3 D Carbon Dioxide 29 Anion Gap 3.0 Creatinine 0.95 Est Cr Clr Drug Dosing 147.2 HbA1c: Hemoglobin A1c 10.5 % (4.5-5.6) H 10/11/19 04:00 - Recent Pertinent Medications Outpatient Anti-diabetic Regimen: * n/a - took metformin 500 mg BID in the past but has not been taking it * A1c = 10.5 % 10/11/19 The patient is currently receiving: * Basal insulin: Lantus 40 units x 1 dose yesterday ~dinner * Correctional Insulin: Novolog Correction per scale ACHS Goal Range: Low 110 mg/dL - High 140 mg/dL Correction Factor: 20 mg/dL/unit * Prandial insulin: Per carb ratio of 1 unit per 7 grams CHO consumed * Oral Agents: Metformin ER 500 mg with dinner Risk Factors for Insulin Resistance: * Diet: NPO this AM for pharm stress test - Assessment & Plan Assessment & Plan: ASSESSMENT: * 44 y/o male admitted with chest pain and hyperglycemia. He has a 10 year history of T2DM, and has been non-compliant with his metformin. He was on an insulin drip for a short period of time yesterday and was then switched to basal/bolus + metformin as patient was insistent on leaving. Now patient NPO for a pharmacologic stress test this AM. * BSGs are slowly increasing but remain less than 180 mg/dL. Metformin was just initiated last night so do not expect to see immediate effects from this. PLAN FOR INPATIENT GLYCEMIC CONTROL: * Metformin ER 500 mg with dinner * Basal insulin - increase until BSGs start to improve from metformin * Lantus 45 units SQ once daily * Bolus insulin - no change * NovoLog per scale ACHS or Q6hrs while NPO * Goal Range: Low 110 mg/dL - High 140 mg/dL * Correction Factor: 20 mg/dL/unit * Nutritional / Prandial insulin per carb ratio of 1 unit per 7 grams CHO consumed Discharge Recommendations: * A1c = 10.5 % on 10/11/19 * Goal A1c < 7 % based on age and comorbidities A1c is greater than or equal to 10% consider triple therapy with metformin + basal insulin + (GLP1-RA OR prandial insulin). May need to continue additional antidiabetic agent based on patient specific factors (efficacy, hypo risk, weight gain/loss, side effects, cost) Recommend: *Note: Patient willing to do only metformin + basal insulin at this time 1. Metformin XR 500mg PO daily with evening meal. Typically the XR formulation of metformin is better tolerated than the immediate release formulation. C ontinue to titrate metformin dosing upwards as recommended. Dosage increases should be made in increments of 500 mg weekly, up to 2,000 mg/day PO, given in divided doses. Doses above 2000 mg/day may be better tolerated if divided and given 3 times per day with meals. Max: 2,550 mg/day PO, in divided doses B12 supplementation may be necessary with [facility] metformin 2. Basal insulin: Glargine 40 units SQ daily 3. GPL1RA: This will be based off of insurance coverage and patient preference of weekly vs daily injection or prandial insulin Thank you.
[2019-10-12] MEDS ORDERED: lisinopriL 5 MG TAB PO SCH (09:00)
[2019-10-12] MEDS ORDERED: ASPIRIN 81 MG ECTAB PO SCH (09:00)
[2019-10-12] MEDS ORDERED: ATROPINE SULFATE 0.1 MG/ML 10ML SYR IV ONE (10:13)
[2019-10-12] MEDS ORDERED: METOPROLOL TARTRATE 1 MG/ML VIAL IV ONE (10:14)
[2019-10-12] MEDS ORDERED: DOBUTamine HCL 12.5 MG/ML 20 ML VIAL IV ONE (10:14)
--- NOTE | 2019-10-12 11:14 | Hospitalist Progress Note ---
Date of Service October 12, 2019 Assessment & Plan (1) Chest pain: Possibly from elevated blood pressure History of medication noncompliance Rule out ACS given risk factors EKG tracings x3 - negative for ischemia Troponin x3 - negative Cardiology consulted Pt underwent echo at rest and dobutamine stress echo - negative for ischemia Given risk factors, recommend to continue ASA Hypertension - resume lisinopril Recommend to keep a log of BP and bring it to PCP for further titration of BP meds Hyperlipidemia - TC 306, LDL 200, TG 273 (10/11/2019) - resume home statin Diabetes mellitus type 2 (uncontrolled) - admitted to PCU for IV insulin - previously on oral meds, noncompliant, elevated blood sugars - outpatient hemoglobin A1c of 9.1 2017 - current HgbA1c 10.5% (10/11/2019) - orchestrator consulted and [facility] glycemic manageemt consulted - will D/C pt on insulin lantus and metformin 500 mg XR daily, plan to uptitrate the medication weekly by 500 mg BABITA as per records - patient yet to complete CPAP titration study Morbid obesity - encourage lifestyle modification and weight loss History of postop DVT status post Coumadin DVT prophylaxis. Lovenox subcu Full code Subjective No acute events overnight. Denies any more chest pain/ chest tightness. Denies a ny shortness of breath, abd. pain, nausea, or vomiting. Review of Systems Review of Systems: All systems reviewed & are unremarkable except as noted in HPI & below Constitutional: no fever, no chills and no fatigue Respiratory: no cough, no dyspnea and no pain on inspiration Cardiovascular: no chest pain, no dyspnea on exertion and no palpitations Gastrointestinal: no abdominal pain, no nausea and no vomiting Physical Exam Physical Exam: GENERAL: morbidly obese middle aged male in no acute distress HEENT: NC/AT, EOMI, PERRL, moist buccal mucosa NECK : Supple, short neck, no tenderness CHEST : CTAB, decreased breath sounds, no wheezing, rhonchi, crackles HEART : RRR, no obvious murmurs ABDOMEN: + bowel sounds, soft, obese, some distention, nontender, no guarding EXTREMITIES : Minimal LE swelling no LE tenderness, moves all 4 extremities spontaneously SKIN: warm, dry NEUROLOGIC : alert and oriented x3, no facial asymmetry, speech fluent, moves all 4 extremities spontaneously Results & Data Vital Signs (Past 12 Hours) Vital Signs Temp Pulse Pulse Resp BP Pulse Ox 10/12/19 07:39 36.4 C L 76 20 139/94 95 10/12/19 07:14 56 L 10/12/19 03:44 36.8 C 64 19 97/63 L 97 10/12/19 00:00 36.9 C 86 77 18 126/87 94 Laboratory Results 10/12/19 10/12/19 10/12/19 Range/Units 07:12 06:41 06:41 WBC 9.73 (4.8-10.8) K/uL RBC 5.00 (4.7-6.1) M/uL Hgb 15.4 (14.0-18.0) g/dL Hct 45.5 (42-52) % MCV 91.0 (80-100) fL MCH 30.8 (25-34) pg MCHC 33.8 (32-36) g/dL RDW Std Deviation 43.1 (36.4-46.3) fL RDW Coeff of Naren 13.2 (11.5-14.5) % Plt Count 201 (130-400) K/uL MPV 9.2 (7.4-10.4) fL Immature Gran % (Auto) 0.4 % Neut % (Auto) 53.8 % Lymph % (Auto) 35.3 % [place] % (Auto) 8.1 % Eos % (Auto) 2.1 % Baso % (Auto) 0.3 % Immature Gran # (Auto) 0.04 H (0.00-0.02) K/uL Neut # (Auto) 5.24 (1.4-6.5) K/uL Lymph # (Auto) 3.43 H (1.2-3.4) K/uL [place] # (Auto) 0.79 H (0.11-0.59) K/uL Eos # (Auto) 0.20 (0-0.5) K/uL Baso # (Auto) 0.03 (0-0.2) K/uL Sodium 137 (136-145) mmol/L Potassium 4.3 D (3.5-5.1) mmol/L Chloride 105 (98-107) mmol/L Carbon Dioxide 29 (21-32) mmol/L Anion Gap 3.0 (3-11) BUN 12 (7-18) mg/dl Creatinine 0.95 (0.6-1.4) mg/dl Est Cr Clr Drug Dosing 147.2 ml/min Est GFR ( Amer) 111.6 Est GFR (Non-Af Amer) 96.3 BUN/Creatinine Ratio 12.2 (10-20) Glucose 158 H (70-99) mg/dl POC Glucose 172 H (70-99) Calcium 8.9 (8.5-10.1) mg/dl Troponin I (0-0.045) ng/ml 10/12/19 10/11/19 10/11/19 Range/Units 03:54 23:53 21:10 WBC (4.8-10.8) K/uL RBC (4.7-6.1) M/uL Hgb (14.0-18.0) g/dL Hct (42-52) % MCV (80-100) fL MCH (25-34) pg MCHC (32-36) g/dL RDW Std Deviation (36.4-46.3) fL RDW Coeff of Naren (11.5-14.5) % Plt Count (130-400) K/uL MPV (7.4-10.4) fL Immature Gran % (Auto) % Neut % (Auto) % Lymph % (Auto) % [place] % (Auto) % Eos % (Auto) % Baso % (Auto) % Immature Gran # (Auto) (0.00-0.02) K/uL Neut # (Auto) (1.4-6.5) K/uL Lymph # (Auto) (1.2-3.4) K/uL [place] # (Auto) (0.11-0.59) K/uL Eos # (Auto) (0-0.5) K/uL Baso # (Auto) (0-0.2) K/uL Sodium (136-145) mmol/L Potassium (3.5-5.1) mmol/L Chloride (98-107) mmol/L Carbon Dioxide (21-32) mmol/L Anion Gap (3-11) BUN (7-18) mg/dl Creatinine (0.6-1.4) mg/dl Est Cr Clr Drug Dosing ml/min Est GFR ( Amer) Est GFR (Non-Af Amer) BUN/Creatinine Ratio (10-20) Glucose (70-99) mg/dl POC Glucose 149 H 148 H 172 H (70-99) Calcium (8.5-10.1) mg/dl Troponin I (0-0.045) ng/ml 10/11/19 10/11/19 10/11/19 Range/Units 16:29 15:55 15:45 WBC (4.8-10.8) K/uL RBC (4.7-6.1) M/uL Hgb (14.0-18.0) g/dL Hct (42-52) % MCV (80-100) fL MCH (25-34) pg MCHC (32-36) g/dL RDW Std Deviation (36.4-46.3) fL RDW Coeff of Naren (11.5-14.5) % Plt Count (130-400) K/uL MPV (7.4-10.4) fL Immature Gran % (Auto) % Neut % (Auto) % Lymph % (Auto) % [place] % (Auto) % Eos % (Auto) % Baso % (Auto) % Immature Gran # (Auto) (0.00-0.02) K/uL Neut # (Auto) (1.4-6.5) K/uL Lymph # (Auto) (1.2-3.4) K/uL [place] # (Auto) (0.11-0.59) K/uL Eos # (Auto) (0-0.5) K/uL Baso # (Auto) (0-0.2) K/uL Sodium (136-145) mmol/L Potassium (3.5-5.1) mmol/L Chloride (98-107) mmol/L Carbon Dioxide (21-32) mmol/L Anion Gap (3-11) BUN (7-18) mg/dl Creatinine (0.6-1.4) mg/dl Est Cr Clr Drug Dosing ml/min Est GFR ( Amer) Est GFR (Non-Af Amer) BUN/Creatinine Ratio (-20) Glucose (70-99) mg/dl POC Glucose 132 H 126 H (70-99) Calcium (8.5-10.1) mg/dl Troponin I < 0.015 (0-0.045) ng/ml 10/11/19 10/11/1910/11/20 Range/Units 15:39 15:25 14:59 WBC (4.8-10.8) K/uL RBC (4.7-6.1) M/uL Hgb (14.0-18.0) g/dL Hct (42-52) % MCV (80-100) fL MCH (25-34) pg MCHC (32-36) g/dL RDW Std Deviation (36.4-46.3) fL RDW Coeff of Naren (11.5-14.5) % Plt Count (130-400) K/uL MPV (7.4-10.4) fL Immature Gran % (Auto) % Neut % (Auto) % Lymph % (Auto) % [place] % (Auto) % Eos % (Auto) % Baso % (Auto) % Immature Gran # (Auto) (0.00-0.02) K/uL Neut # (Auto) (1.4-6.5) K/uL Lymph # (Auto) (1.2-3.4) K/uL [place] # (Auto) (0.11-0.59) K/uL Eos # (Auto) (0-0.5) K/uL Baso # (Auto) (0-0.2) K/uL Sodium (136-145) mmol/L Potassium (3.5-5.1) mmol/L Chloride (98-107) mmol/L Carbon Dioxide (21-32) mmol/L Anion Gap (3-11) BUN (7-18) mg/dl Creatinine (0.6-1.4) mg/dl Est Cr Clr Drug Dosing ml/min Est GFR ( Amer) Est GFR (Non-Af Amer) BUN/Creatinine Ratio (10-20) Glucose (70-99) mg/dl POC Glucose 128 H 123 H 128 H (70-99) Calcium (8.5-10.1) mg/dl Troponin I (0-0.045) ng/ml 10/11/19 10/11/19 10/11/19 Range/Units 14:01 12:43 11:18 WBC (4.8-10.8) K/uL RBC (4.7-6.1) M/uL Hgb (14.0-18.0) g/dL Hct (42-52) % MCV (80-100) fL MCH (25-34) pg MCHC (32-36) g/dL RDW Std Deviation (36.4-46.3) fL RDW Coeff of Naren (11.5-14.5) % Plt Count (130-400) K/uL MPV (7.4-10.4) fL Immature Gran % (Auto) % Neut % (Auto) % Lymph % (Auto) % [place] % (Auto) % Eos % (Auto) % Baso % (Auto) % Immature Gran # (Auto) (0.00-0.02) K/uL Neut # (Auto) (1.4-6.5) K/uL Lymph # (Auto) (1.2-3.4) K/uL [place] # (Auto) (0.11-0.59) K/uL Eos # (Auto) (0-0.5) K/uL Baso # (Auto) (0-0.2) K/uL Sodium (136-145) mmol/L Potassium (3.5-5.1) mmol/L Chloride (98-107) mmol/L Carbon Dioxide (21-32) mmol/L Anion Gap (3-11) BUN (7-18) mg/dl Creatinine (0.6-1.4) mg/dl Est Cr Clr Drug Dosing ml/min Est GFR ( Amer) Est GFR (Non-Af Amer) BUN/Creatinine Ratio (10-20) Glucose (70-99) mg/dl POC Glucose 168 H 182 H 217 H (70-99) Calcium (8.5-10.1) mg/dl Troponin I (0-0.045) ng/ml Medications Administered Current Inpatient Medications Acetaminophen (Tylenol) 650 mg PO Q4H PRN PRN Reason: Pain or Fever Stop: 11/10/19 09:03 Aspirin (Ecotrin Ectab) 81 mg PO [facility] Stop: 11/11/19 08:59 Last Admin: 10/12/19 08:19 Dose: 81 mg Documented by: Atorvastatin Calcium (Lipitor) 20 mg PO [facility] Stop: 11/10/19 08:59 Last Admin: 10/12/19 08:19 Dose: 20 mg Documented by: Dextrose (Dextrose 50%) 25 - 50 ml IV UD PRN; Protocol PRN Reason: Hypoglycemia Protocol Stop: 11/10/19 08:59 Enoxaparin Sodium (Lovenox) 40 mg SQ QAM QUETA Stop: 11/10/19 08:59 Last Admin: 10/12/19 08:18 Dose: 40 mg Documented by: Glucagon (Glucagen) 1 mg IM UD PRN; Protocol PRN Reason: Hypoglycemia Protocol Stop: 11/10/19 08:59 Glucose (Glucose 40%) 15 - 30 gm PO UD PRN; Protocol PRN Reason: Hypoglycemia Protocol Stop: 11/10/19 08:59 Glucose (Dex4 Glucose) 4 - 8 tabs PO UD PRN; Protocol PRN Reason: Hypoglycemia Protocol Stop: 11/10/19 08:59 Promethazine HCl 12.5 mg/ (Sodium Chloride) 50.5 mls @ 202 mls/hr IV Q6H PRN PRN Reason: Nausea And Vomiting Stop: 11/10/19 09:03 Lorazepam (Ativan) 0.5 mg in 1 mls @ 1 mls/min IV Q4H PRN PRN Reason: Anxiety/Agitation Stop: 11/10/19 09:03 Potassium Chloride/Sodium Chloride (Normal Saline W/20 Meq Kcl) 20 meq in 1,000 mls @ 60 mls/hr IV .[id number] QUETA Stop: 11/10/19 09:03 Last Admin: 10/12/19 02:02 Dose: 60 mls/hr Documented by: Insulin Aspart (Novolog Flexpen) 0 units SC ACHS QUETA; Protocol Stop: 11/10/19 20:59 Last Admin: 10/12/19 08:17 Dose: 2 units Documented by: Insulin Glargine (Lantus Solostar Pen) 40 units SC HS QUETA; Protocol Stop: 11/11/19 16:29 Lisinopril (Zestril) 5 mg PO QAM QUETA Stop: 11/11/19 08:59 Last Admin: 10/12/19 08:19 Dose: 5 mg Documented by: Metformin HCl (Glucophage Er) 500 mg PO QDD QUETA; Protocol Stop: 11/10/19 18:29 Last Admin: 10/11/19 18:50 Dose: 500 mg Documented by: Miscellaneous (Carbohydrates For Hypoglycemia) 15 - 30 gm PO UD PRN PRN Reason: Hypoglycemia Treatment Stop: 11/10/19 08:59 Miscellaneous Information (Consult Glycemic Management Pharmacy) 1 ea N/A UD PRN PRN Reason: Consult Stop: 11/10/19 16:30 Morphine Sulfate (Morphine Sulfate) 4 mg IV Q4H PRN PRN Reason: Pain Stop: 10/25/19 09:03 Nitroglycerin (Nitrostat) 0.4 mg SL UD PRN PRN Reason: Chest Pain Stop: 11/10/19 09:03 Oxycodone HCl (Roxicodone Immediate Rel) 5 mg PO Q4H PRN PRN Reason: Pain Stop: 10/25/19 09:03 (1) Chest pain Chest pain type: unspecified Qualified Code(s): R07.9 - Chest pain, unspecified
[2019-10-12] MEDS ORDERED: PERFLUTREN LIPID MICROSPHERE (DEFINITY) IV ONE (11:19)
--- NOTE | 2019-10-12 12:10 | Cardiology Progress Note ---
Date of Service October 12, 2019 Assessment & Plan (1) Chest pain: Resting echo was normal, with normal LVEF, normal diastolic function, and no significant valvular disease. Stress echo was normal. No symptoms suggestive of angina were reproduced. Full report to follow. Pt stable for discharge. Given his risk factors would continue low dose ASA at discharge. (2) Dyslipidemia: atorvastatin 10 mg. (3) Diabetes mellitus with hyperglycemia: resume DM medication (4) HTN (hypertension): continue lisinopril. Stable for discharge from cardiac perspective. Subjective Patient felt well overnight. No recurrence of chest pain. Review of Systems Review of Systems: All systems reviewed & are unremarkable except as noted in HPI & below Physical Exam Physical Exam: Temp Pulse Resp BP Pulse Ox 36.4 C L 83 18 122/80 93 10/12/19 11:51 10/12/19 11:51 10/12/19 11:51 10/12/19 11:51 10/12/19 11:51 Constitutional: + morbidly obese Respiratory: normal respiratory effort, lungs clear to auscultation Cardiovascular: RRR, no murmur, no edema Gastrointestinal (Abdomen): normal bowel sounds, soft, nontender, no hepatosplenomegaly Neurologic: PERRL, EOMI, accommodation nl, no face palsy, no dysarthria Results & Data Vital Signs (Past 12 Hours) Vital Signs Temp Pulse Pulse Resp BP Pulse Ox 10/12/19 11:51 36.4 C L 83 18 122/80 93 10/12/19 07:39 36.4 C L 76 20 139/94 95 10/12/19 07:14 56 L 10/12/19 03:44 36.8 C 64 19 97/63 L 97 (1) Chest pain Chest pain type: unspecified Qualified Code(s): R07.9 - Chest pain, unspecified
[2019-10-12] MEDS ORDERED: INSULIN GLARGINE SOLOSTAR 100 UNITS/ML 3 ML PEN SC SCH ×2 (12:15→16:30)
--- NOTE | 2019-10-12 13:24 | Discharge Summary ---
Date of Service October 12, 2019 Admission HPI Per Admitting Provider History obtained from patient and records. Medical history significant for hypertension, hyperlipidemia, DM 2, history of postop DVT status post Coumadin, BABITA as per records, past tobacco abuse, medication noncompliance. Patient stopped taking his blood pressure, cholesterol, diabetes medications a few years ago because he was not able to go to his PCP's office. . Patient was lying in bed last night when he experienced substernal tightness going to his neck, jaw, and left arm without other symptoms. May have had a couple transient episodes a few years ago as per patient. At the ER, chest tightness resolved after Ativan administration.. Medical History as above Surgical History : Knee surgery, back surgery, dental surgery, tonsillectomy Family History : Stroke, hypertension Personal/Social history : Past tobacco abuse, occasional EtOH intake, beer store employee Admission Exam Per Admitting Provider GENERAL: Comfortable, slightly anxious, morbidly obese, no respiratory distress SKIN: Normal color, warm HEENT: [place] palpebral conjunctivae, no ptosis, moist buccal mucosa NECK : Supple, short neck, no tenderness CHEST : Decreased breath sounds , no tenderness HEART : RRR, no obvious murmurs ABDOMEN: Some distention, nontender EXTREMITIES : Minimal LE swelling no LE tenderness, no other conspicuous deformities noted NEUROLOGIC : Coherent, no facial asymmetry, no other gross focality Principal Diagnosis Diabetes mellitus type 2 (uncontrolled), Hypertension, Hyperlipidemia, morbid obesity Discharge Exam GENERAL: morbidly obese middle aged male in no acute distress HEENT: NC/AT, EOMI, PERRL, moist buccal mucosa NECK : Supple, short neck, no tenderness CHEST : CTAB, decreased breath sounds, no wheezing, rhonchi, crackles HEART : RRR, no obvious murmurs ABDOMEN: + bowel sounds, soft, obese, some distention, nontender, no guarding EXTREMITIES : Minimal LE swelling no LE tenderness, moves all 4 extremities spontaneously SKIN: warm, dry NEUROLOGIC : alert and oriented x3, no facial asymmetry, speech fluent, moves all 4 extremities spontaneously Discharge Data Allergies Allergy/AdvReac Type Severity Reaction Status Date / Time No Known Allergies Allergy Verified 10/11/19 04:38 Consultations 10/11/19 05:16 ED Decision to Admit Stat 10/11/19 09:04 Consult Cardiology Routine Hospital Course (1) Chest pain: Possibly from elevated blood pressure History of medication noncompliance Rule out ACS given risk factors EKG tracings x3 - negative for ischemia Troponin x3 - negative Cardiology consulted Pt underwent echo at rest and dobutamine stress echo - negative for ischemia Given risk factors, recommend to continue ASA Hypertension - resume lisinopril Recommend to keep a log of BP and bring it to PCP for further titration of BP meds Hyperlipidemia - TCH 306, LDL 200, TG 273 (10/11/2019) - resume home statin Diabetes mellitus type 2 (uncontrolled) - admitted to PCU for IV insulin - previously on oral meds, noncompliant, elevated blood sugars - outpatient hemoglobin A1c of 9.1 2017 - current HgbA1c 10.5% (10/11/2019) - environmental educator consulted and [facility] glycemic manageemt consulted - will D/C pt on insulin lantus and metformin 500 mg XR daily, plan to uptitrate the medication weekly by 500 mg BABITA as per records - patient yet to complete CPAP titration study Morbid obesity - encourage lifestyle modification and weight loss History of postop DVT status post Coumadin DVT prophylaxis. Lovenox subcu Full code Total Time Total Time Spent Total Time Spent (In Minutes): 40 Total Time Includes: Examination of the Patient, Discharge Planning, Medication Reconciliation and Communication With Other Providers Discharge Plan Discharge Items Patient Disposition: Home - Self-Care Reason For Visit: CHEST PAIN Discharge Diagnosis: Diabetes mellitus type 2, uncontrolled, Hypertension, Hyperlipidemia Condition on Discharge: Good Activity: Resume your previous activity Activity Comment: as tolerated, pace yourself, ask for help as needed Exercise/Sports: Wait until after follow-up appointment Non-emergency contact: Primary Care Provider Call non-emergency contact if: you have any medication questions and your symptoms worsen Follow-up/Referrals: Tyrese Briceno MD [Primary Care Provider] - 10/14/19 12:45 pm Diet: Carb Consistent or DM2, Heart Healthy and Low Fat Addtl Attending Provider Instructions: Follow-up with your primary care provider, on October 14, at 12:45 PM. Start taking aspirin, lisinopril, atorvastatin, and metformin (500 mg daily for now). Also use insulin, 45 units daily as you were instructed by our environmental educator. Plan is to titrate up metformin, by 500 mg every week. Discuss this with your primary care physician. Monitor blood sugars as you were instructed by environmental educator while in the hospital. Keep a log and bring it to your primary care doctor appointment. Monitor blood pressure and keep a log. Bring these values to your primary care doctor appointment. Pending Studies at Discharge: No Stand-Alone Forms: Call Back Authorization, My [facility], Smoking Cessation Medications and DC Order Prescriptions: New atorvastatin 20 mg Tablet 20 mg PO QAM 30 Days Qty: 30 RF: 0 lisinopril [Zestril] 5 mg Tablet 5 mg PO QAM 30 Days Qty: 30 RF: 0 aspirin [Ecotrin Low Strength] 81 mg Tablet,Delayed Release (Dr/Ec) 81 mg PO QAM 30 Days Qty: 30 RF: 0 metformin 500 mg Tablet Extended Release 24 Hr 500 mg PO QDD 30 Days Qty: 30 RF: 0 Lantus Solostar U-100 Insulin 100 unit/mL (3 mL) Insulin Pen 45 unit SC HS 30 Days Qty: 13.5 RF: 0 No Action No Known Home Medications RF: 0 Discharge Orders: Discharge Order (Routine); Ordered 10/12/19 Ordered By: Edy Monge/Other Patient Handouts: Diabetes Heart Disease, Diabetes Restaurant Recruiter Complications, Diabetes Resources, Diabetes Type 2 Coping, Diabetes Healthy Meals, Diabetes Carbs, Diabetes Exercise Benefits, Diabetes Activity Tips, Diabetes Living Life, A1C Admission Data Admit Date/Time: 10/11/19 05:39 Attending Provider: Edy Sanchez Admit Provider: Andrew Hoffmann Primary Care Provider: Tyrese Briceno Other Providers: Andrew Hoffmann ; Alonso Turner Other Interventions: Discharge Summary Assessment (RN) Last Done: 10/12/19 13:39 DC Date/Time DO NOT enter until pt leaves facility: 10/12/19 14:15
== END 2019-10-12 14:15 | disposition home or self-care (01) ==
LOC: 1E 03:44 → ED 03:44 → SUATTDRO 05:39 → 1E 07:54 → 2S 22:32